=== PATIENT | male | born 1955 | race Caucasian/White ===

== ENCOUNTER 2017-10-23 08:22 | Emergency (ER) | payer BC ==
[~2017-10-23] VITALS: Ht 167.6 cm; Wt 84.2 kg
[2017-10-23 08:26] VITALS: BP 122/61; PULSE 61; RESP 18; TEMP 97.8; O2SAT 99
[2017-10-23] MEDS ORDERED: FINA5TAB2 PO (08:52)
[2017-10-23] MEDS ORDERED: CLOTR1%T TOPICAL (09:14)
--- NOTE | 2017-10-23 09:14 | PD ---
HPI Chief Complaint: Skin Problem Time Seen by Provider: 08:48 Travel History International Travel<30 days: No Contact w/Intl Traveler<30days: No Traveled to known affect area: No History of Present Illness HPI 62yo M with PMH of enlarge prostate here with c/o irritation, pain and swelling of glans of penis for a few days. Pt had a procedure to shrink his prostate with urologist Dr. Michael on October 06 and has had an indwelling catheter since then. Pt has been cleaning it with hydrogen peroxide which did not help. Pt then place hydrocortisone cream on it which helped a little. Denies any fever, chest pain, sob, n/v, abdominal pain, urinary complaints. Pt has been on prophylactic antibiotics from his urologist since 2 days ago. Pt has a follow up appointment with Dr. Michael next week. PFSH Past Medical History Diminished Hearing: No Genitourinary: Yes (enlarged prostate) Tetanus Vaccination: Unknown Influenza Vaccination: No Past Surgical History Genitourinary Surgery: Yes (prostate SX) Social History Alcohol Use: No Tobacco Use: No Substance Use: No Allergies-Medications (Allergen,Severity, Reaction): Coded Allergies: No Known Allergies (Unverified , 07/05/16) Reported Meds & Prescriptions Reported Meds & Active Scripts Active Reported Finasteride 5 Mg Tab 5 Mg PO DAILY Do not crush. Review of Systems Except as stated in HPI: all other systems reviewed are Neg Physical Exam Narrative GENERAL: 62yo M not in distress. SKIN: Focused skin assessment warm/dry. HEAD: Atraumatic. Normocephalic. EYES: Pupils equal and round. No scleral icterus. No injection or drainage. CARDIOVASCULAR: Regular rate and rhythm. No murmur appreciated. RESPIRATORY: No accessory muscle use. Clear to auscultation. Breath sounds equal bilaterally. GASTROINTESTINAL: Abdomen soft, non-tender, nondistended. No rebound tenderness or guarding. : Circumcised male with indwelling jackson. Mild erythema and edema glans penis. +White cream on it. No ulcers. No ttp bilateral testicles. MUSCULOSKELETAL: No obvious deformities. No clubbing. No cyanosis. No edema. NEUROLOGICAL: Awake and alert. No obvious cranial nerve deficits. Motor grossly within normal limits. Normal speech. PSYCHIATRIC: Appropriate mood and affect; insight and judgment normal. Data Data Last Documented VS Vital Signs Date Time Temp Pulse Resp B/P (MAP) Pulse Ox O2 Delivery O2 Flow Rate FiO2 10/23/17 08:26 97.8 61 18 122/61 (81) 99 Room Air MDM Medical Decision Making Medical Screen Exam Complete: Yes Emergency Medical Condition: Yes Differential Diagnosis Balanitis vs. dermatitis Narrative Course 62yo M with irritation and redness in glans penis. Pt has been on recent antibiotics, will cover with antifungal cream and have pt follow up with urologist. Pt is very well appearing with no systemic symptoms. Vital signs stable. Diagnosis Primary Impression: Balanitis Patient Instructions: General Instructions Departure Forms: Tests/Procedures Additional Instructions: Please follow up with your urologist next week. Please return to the ED if symptoms worsen. Med/Other Pt SpecificInfo: Prescription(s) given Scripts Clotrimazole Topical (Clotrimazole Topical) 1% Soln 1 APPLIC TOPICAL BID for Fungal Infection for 7 Days, #10 ML 0 Refills Prov: Naomi Croft DO 10/23/17 Disposition: 01 DISCHARGE HOME Condition: Stable Naomi Croft DO Oct 23, 2017 09:14
== END 2017-10-23 09:24 | disposition home or self-care (01) ==
LOC: PHED 08:22
DX: N48.1 Balanitis (principal); N40.0 Benign prostatic hyperplasia without lower urinary tract symptoms; Z98.890 Other specified postprocedural states
CPT/HCPCS: 99283